=== PATIENT | male | born 1945 | race Caucasian/White ===

== ENCOUNTER → 2019-07-14 07:10 | Outpatient (CLI) | payer MEDICARE, SELFPAY ==
[2019-07-14 10:41] LABS: Alanine Aminotransferase 24 U/L (12-78); Albumin Level 3.6 gm/dL (3.4-5.0); Albumin/Globulin Ratio 1.2 (1.1-1.8); Alkaline Phosphatase 54 U/L (46-116); Anion Gap 12.9 mEq/L (5-15); Aspartate Amino Transferase 20 U/L (15-37); Bilirubin,Total 0.6 mg/dL (0.2-1.0); Blood Urea Nitrogen 30 mg/dL (7-18); Calcium 8.9 mg/dL (8.5-10.1); Carbon Dioxide 28 mmol/L (21.0-32.0); Chloride 106 mmol/L (98-107); Chol/HDL Ratio 3.9 (1-3.5); Cholesterol 124 mg/dL (140-200); Creatinine,Serum 1.04 mg/dL (0.70-1.30); Estimated Glomerular Filt Rate 70 ml/min (>60); GFR (African American) 84 ML/MIN (>60); Globulin 3.1 gm/dl (1.3-3.2); Glucose 94 mg/dL (74-106); HDL Cholesterol 32 mg/dL (27-67); LDL Cholesterol 72 mg/dL (0-130); Potassium 3.9 mmoL/L (3.5-5.1); Sodium 143 mmol/L (136-145); Total Protein,Serum 6.7 gm/dL (6.4-8.2); Triglycerides 99 mg/dL (30-200); VLDL Cholesterol 20 mg/dL (0-40)
== END ==
PROVIDERS: Visit Provider Internal Medicine Cardiovascular Disease
DX: E78.2 Mixed hyperlipidemia (principal)
CPT/HCPCS: 36415; 80053; 80061

== ENCOUNTER → 2019-08-28 10:49 | Outpatient (CLI) | payer MEDICARE, SELFPAY ==
--- NOTE | 2019-08-28 10:58 | XR_ITS ---
PROCEDURE: XR LUMBAR SPINE MIN 4V CLINICAL INDICATION: LUMBAGO W/SCIATICA L-spine fracture evaluation COMPARISON: No exams were available for comparison FINDINGS: Multilevel degenerative changes with anterior syndesmophytes at L3-L4 and L4-L5. There is mild wedging of L1 and T12 which may be chronic. There are no previous exams available for comparison. Facet arthritic changes are present at L4-5 and L5-S1. Mild osteoarthritic changes are present in the hips and there are bilateral renal calculi measuring 4 mm in the lower pole bilaterally. Mild arthritic changes are present involving the right SI joint. IMPRESSION: 1. Mild wedging of T12 and L1 which may be chronic. 2. Degenerative changes of the lumbar spine as described above 3. Bilateral nephrolithiasis Dictated by: David Beltre MD 08/28/2019 11:19 Electronically signed by David Beltre MD in [place] 08/28/2019 11:19
== END ==
PROVIDERS: PCP Family Medicine; Visit Provider Family Medicine
DX: M54.42 Lumbago with sciatica, left side (principal); M54.41 Lumbago with sciatica, right side
CPT/HCPCS: 72110

== ENCOUNTER → 2019-10-01 15:58 | Outpatient (CLI) | payer MEDICARE, SELFPAY ==
--- NOTE | 2019-10-01 16:00 | MR_ITS ---
PROCEDURE: MR LUMBAR SPINE WO CON CLINICAL INDICATION: BULGING LUMBAR DISC, LUMBAR FACET ARTHROPATHY, LUMBAGO W/SC Bilateral leg pain and numbness tingling and burning COMPARISON: CT LUMBAR SPINE WO CON from 09/26/2019 TECHNIQUE: Standard multiplanar multiecho sequences are performed without contrast. 3-D MIP and myelographic images are also rendered and reviewed FINDINGS: There is normal alignment. The spinal cord ends at the L1 level. T11-T12: Degenerative disc disease with mild facet and ligamentum hypertrophy. Increased T1 and T2 signal is present within the T12 vertebral body becoming less intense on the STIR images consistent with a lipoma/lipid rich hemangioma. There is mild wedging of T12 which appears old. T12-L1: Degenerative disc disease with bulging disc with facet and ligamentum hypertrophy. There borderline narrowing of the canal at 12 mm with bilateral lateral recess and foraminal narrowing. L1-L2: Mild degenerative disc disease with mild bulging disc with facet and ligamentum hypertrophy with mild bilateral lateral recess and foraminal narrowing. L2-L3: Facet and ligamentum hypertrophy with bilateral lateral recess and foraminal narrowing. L3-L4: Facet and ligamentum hypertrophy with bilateral lateral recess and foraminal narrowing. L4-5: Degenerative disc disease with bulging disc with severe facet and ligamentum hypertrophy with severe canal stenosis. The transverse dimension of the canal here is 5 mm with AP dimension at approximately 10 mm. There is a small broad-based central disc protrusion. There is severe bilateral lateral recess and foraminal narrowing. In addition, there is a right paracentral extruded herniated disc with superior extrusion of the disc. The superior portion of the disc measures about 15 mm and is in the right paracentral region causing severe right lateral recess narrowing. The bulging disc is slightly eccentric toward the left with some asymmetric facet and ligamentum hypertrophy on the left with severe left lateral recess narrowing. The L5-S1: Mild degenerative disc disease with facet and ligamentum hypertrophy with mild bilateral lateral recess and foraminal narrowing. Incidental note is made of bilateral peripelvic renal cysts IMPRESSION: 1. Abnormal MRI of the lumbar spine with multiple abnormalities from degenerative changes with canal stenosis, lateral recess and foraminal narrowing, and extruded herniated disc at L4-5. Please see above for detail. 2. T12-L1: Degenerative disc disease with bulging disc with facet and ligamentum hypertrophy. There borderline narrowing of the canal at 12 mm with bilateral lateral recess and foraminal narrowing. 3. L4-5: Degenerative disc disease with bulging disc with severe facet and ligamentum hypertrophy with severe canal stenosis. The transverse dimension of the canal here is 5 mm with AP dimension at approximately 10 mm. There is a small broad-based central disc protrusion. There is severe bilateral lateral recess and foraminal narrowing. In addition, there is a right paracentral extruded herniated disc with superior extrusion of the disc. The superior portion of the disc measures about 15 mm and is in the right paracentral region causing severe right lateral recess narrowing. The bulging disc is slightly eccentric toward the left with some asymmetric facet and ligamentum hypertrophy on the left with severe left lateral recess narrowing. Dictated by: David Beltre MD 10/02/2019 09:49 Electronically signed by David Beltre MD in [place] 10/02/2019 09:49
== END ==
PROVIDERS: PCP Family Medicine; Visit Provider Family Medicine
DX: M51.26 Other intervertebral disc displacement, lumbar region (principal); M47.816 Spondylosis without myelopathy or radiculopathy, lumbar region; M54.41 Lumbago with sciatica, right side; M54.42 Lumbago with sciatica, left side
CPT/HCPCS: 72148; 76376

== ENCOUNTER → 2020-06-14 07:36 | Outpatient (CLI) | payer MEDICARE, SELFPAY ==
[2020-06-14 08:52] LABS: Chloride 106 mmol/L (98-107); Potassium 4.6 mmoL/L (3.5-5.1); Sodium 141 mmol/L (136-145)
[2020-06-14 08:54] LABS: Alanine Aminotransferase 18 U/L (12-78); Alkaline Phosphatase 52 U/L (38-126); Aspartate Amino Transferase 25 U/L (17-59); Bilirubin,Total 0.6 mg/dl (0.2-1.3); Blood Urea Nitrogen 30 mg/dl (9-20); Estimated Glomerular Filt Rate 65 ml/min (>60); GFR (African American) 79 ML/MIN (>60)
[2020-06-14 08:55] LABS: Albumin/Globulin Ratio 1.4 (1.1-1.8); Anion Gap 10.6 mEq/L (5-15); Calcium 9.5 mg/dl (8.4-10.2); Carbon Dioxide 29 mmol/L (22.0-30.0); Chol/HDL Ratio 2.7 (1-3.5); Cholesterol 126 mg/dl (140-200); Globulin 2.9 g/dL (1.3-3.2); Glucose 103 mg/dl (74-100); HDL Cholesterol 46 mg/dl (40-60); Total Protein,Serum 6.9 g/dl (6.3-8.2); Triglycerides 80 mg/dl (30-150); VLDL Cholesterol 16 mg/dL (0-40)
[2020-06-14 09:06] LABS: Direct LDL Cholesterol 65.74 mg/dL (100-129)
== END ==
PROVIDERS: Visit Provider Internal Medicine Cardiovascular Disease
DX: E78.2 Mixed hyperlipidemia (principal)
CPT/HCPCS: 36415; 80053; 80061

== ENCOUNTER → 2021-08-01 09:14 | Outpatient (CLI) | payer MEDICARE, SELFPAY | PROVIDERS: PCP Family Medicine; Visit Provider Nurse Practitioner | DX: Z20.822 Contact with and (suspected) exposure to COVID-19 (principal); U07.1 COVID-19 | CPT/HCPCS: C9803; U0003; U0005 ==

== ENCOUNTER 2021-08-03 07:46 | Outpatient (CLI) | payer MEDICARE, SELFPAY ==
[2021-08-03 08:08] VITALS: BP 164/93; PULSE 93; RESP 18; TEMP 36.8; O2SAT 98
[2021-08-03 09:06] VITALS: BP 122/86; PULSE 89; RESP 16; O2SAT 98
[2021-08-03 09:30] VITALS: BP 121/84; PULSE 79; RESP 18; O2SAT 98
[2021-08-03 10:02] VITALS: BP 121/64; PULSE 70; RESP 18; TEMP 36.8; O2SAT 97
== END 2021-08-03 10:03 | disposition home or self-care (01) ==
LOC: INF 07:48
PROVIDERS: PCP Family Medicine; Visit Provider Family Medicine
DX: U07.1 COVID-19 (principal); Z23 Encounter for immunization
CPT/HCPCS: 96365

== ENCOUNTER → 2023-02-09 10:49 | Outpatient (CLI) | payer MEDICARE, SELFPAY ==
--- NOTE | 2023-02-09 10:55 | XR_ITS ---
FINAL REPORT CLINICAL HISTORY: CHRONIC COUGH, x 1 wk, former smoker FINDINGS: Two views of the chest were obtained. The heart size and pulmonary vascularity are within normal limits. The mediastinum is normal. No acute pulmonary abnormality is identified. There is no pneumothorax. There are moderate degenerative changes in the thoracic spine. IMPRESSION: No active cardiopulmonary disease. Reviewed, Interpreted and Dictated by Fab Christina III, MD Transcribed by Elizabeth Tinoco Authenticated and . [facility]
== END ==
PROVIDERS: PCP Family Medicine; Visit Provider Family Medicine
DX: R05.3 Chronic cough (principal)
CPT/HCPCS: 71046

== ENCOUNTER → 2023-03-06 10:19 | Outpatient (POV) | payer MEDICARE, SELFPAY | PROVIDERS: Visit Provider Dermatology | DX: Z00.00 Encounter for general adult medical examination without abnormal findings (principal) ==

== ENCOUNTER → 2023-08-14 10:19 | Outpatient (POV) | payer MEDICARE, SELFPAY | PROVIDERS: Visit Provider Dermatology | DX: Z00.00 Encounter for general adult medical examination without abnormal findings (principal) ==

== ENCOUNTER → 2023-10-02 16:52 | Outpatient (CLI) | payer MEDICARE, SELFPAY ==
--- NOTE | 2023-10-02 16:55 | MR_ITS ---
PROCEDURE INFORMATION: Exam: MR Lumbar Spine Without Contrast Exam date and time: 10/02/2023 5:02 PM Age: 78 years old Clinical indication: Low back pain; Prior surgery; Surgery date: 6+ months; Surgery type: Lumbar; Additional info: Lumbago with sciatica. Lumbar surgery 4 years ago. Bilateral leg numbness to the knees TECHNIQUE: Imaging protocol: Magnetic resonance imaging of the lumbar spine without contrast. COMPARISON: 1. MR LUMBAR SPINE WO CON 10/01/2019 4:[address] LUMBAR SPINE WO CON 09/26/2019 12:25 PM 3. CR XR LUMBAR SPINE MIN 4V 08/28/2019 11:05 AM FINDINGS: Bones/joints: The patient is status post laminectomy of the posterior L5 level. 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 Spinal cord: Visualized cord, conus medullaris and cauda equina are unremarkable without compression. L1-L2: There is loss of intervertebral disc space with a diffuse disc bulge and bilateral facet arthropathy that causes moderate canal narrowing. L2-L3: There is a diffuse disc bulge with bilateral facet arthropathy and ligamentum flavum infolding causes severe canal narrowing. L3-L4: There is loss of intervertebral disc space with a diffuse disc bulge and bilateral facet arthropathy that causes moderate canal narrowing. L4-L5: Significant disc bulge with associated moderate canal and neural foraminal narrowing, the patient is decompressed at this level. L5-S1: There is loss of intervertebral disc space with a mild diffuse disc bulge and mild bilateral facet arthropathy. Findings cause mild canal and bilateral neural foraminal narrowing. Soft tissues: Unremarkable. IMPRESSION: Status post laminectomy at L5. 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 Findings are most pronounced at L2-L3 where there is severe canal narrowing.
== END ==
PROVIDERS: PCP Family Medicine; Visit Provider Family Medicine
DX: M54.41 Lumbago with sciatica, right side (principal); M47.816 Spondylosis without myelopathy or radiculopathy, lumbar region; M51.26 Other intervertebral disc displacement, lumbar region
CPT/HCPCS: 72148; 76376

== ENCOUNTER 2023-11-29 08:00 | Outpatient (RCR) | payer MEDICARE, SELFPAY | END 2023-11-29 09:00 | disposition home or self-care (01) | LOC: PT 08:00 | PROVIDERS: PCP Family Medicine; Visit Provider Neurological Surgery | DX: M54.50 Low back pain, unspecified (principal) | CPT/HCPCS: 97110; 97163 ==

== ENCOUNTER 2024-02-05 09:15 | Outpatient (POV) | payer MEDICARE, SELFPAY | END 2024-02-05 23:59 | disposition home or self-care (01) | LOC: SC 09:16 | PROVIDERS: PCP Family Medicine; Visit Provider Dermatology | DX: Z00.00 Encounter for general adult medical examination without abnormal findings (principal) ==

== ENCOUNTER 2024-05-22 14:17 | Outpatient (CLI) | payer MEDICARE, SELFPAY | END 2024-05-22 23:59 | disposition home or self-care (01) | LOC: LAB 14:18 | PROVIDERS: PCP Family Medicine; Visit Provider Internal Medicine Medical Oncology | DX: D64.9 Anemia, unspecified (principal) | CPT/HCPCS: 36415; 80053; 82728; 83540; 83550; 85025 ==

== ENCOUNTER 2024-06-12 07:09 | Outpatient (CLI) | payer MEDICARE, SELFPAY ==
[2024-06-12 07:41] LABS: Basophils % 0.7 % (0.1-2.0); Eosinophils # 0.2 K/mm3 (0.0-0.4); Eosinophils % 2.7 % (0.1-12.0); Hematocrit 32.4 % (42.0-52.0); Hemoglobin 11.1 g/dL (14.1-18.0); Lymphocytes # 1.7 K/mm3 (0.7-4.5); Lymphocytes % 29.9 % (10-50); Mean Corpuscular HGB Conc 34.2 g/dL (31.8-35.4); Mean Corpuscular Hemoglobin 24.1 pg (27.0-31.2); Mean Corpuscular Volume 70.5 fl (80-94); Mean Platelet Volume 9.2 fl (7.4-10.4); Monocytes # 0.3 K/mm3 (0.1-1.0); Monocytes % 5.7 % (1.7-9.3); Neutrophils # 3.5 K/mm3 (1.8-7.8); Platelet Count 128 K/mm3 (142-424); Red Blood Count 4.59 M/mm3 (4.60-6.20); Red Cell Distribution Width 16.9 % (11.5-17.5); White Blood Count 5.7 K/mm3 (4.8-10.8)
[2024-06-12 08:25] LABS: Chloride 107 mmol/L (98-107)
[2024-06-12 08:26] LABS: Potassium 3.9 mmoL/L (3.5-5.1); Sodium 139 mmol/L (136-145)
[2024-06-12 08:28] LABS: Alanine Aminotransferase 26 U/L (12-78); Aspartate Amino Transferase 32 U/L (17-59); Blood Urea Nitrogen 25 mg/dl (9-20); Estimated Glomerular Filt Rate 72 ml/min (>60); GFR (African American) 87 ML/MIN (>60)
[2024-06-12 08:29] LABS: Albumin/Globulin Ratio 1.4 (1.1-1.8); Alkaline Phosphatase 99 U/L (38-126); Anion Gap 5.9 mEq/L (5-15); Bilirubin,Total 0.9 mg/dl (0.2-1.3); Calcium 8.6 mg/dl (8.4-10.2); Carbon Dioxide 30 mmol/L (22.0-30.0); Globulin 2.9 g/dL (1.3-3.2); Glucose 100 mg/dl (74-100); Iron 139 ug/dL (49-181); Total Protein,Serum 6.9 g/dl (6.3-8.2)
[2024-06-12 08:39] LABS: Total Iron Binding Capacity 263 ug/dL (261-462)
[2024-06-12 09:07] LABS: Ferritin 255 ng/ml (17.9-464)
== END 2024-06-12 23:59 | disposition home or self-care (01) ==
LOC: LAB 07:11
PROVIDERS: PCP Family Medicine; Visit Provider Internal Medicine Medical Oncology
DX: D64.9 Anemia, unspecified (principal)
CPT/HCPCS: 36415; 80053; 82728; 83540; 83550; 85025

== ENCOUNTER 2024-06-25 07:54 | Outpatient (CLI) | payer MEDICARE, SELFPAY ==
[2024-06-25 08:24] LABS: Hemoglobin 10.7 g/dL (14.1-18.0)
[2024-06-26 15:32] LABS: Albumin 3.5 g/dL (2.9-4.4); Alpha-1-Globulin 0.1 g/dL (0.0-0.4); Alpha-2-Globulin 0.7 g/dL (0.4-1.0); Gamma Globulin 1.3 g/dL (0.4-1.8); Protein, Total 6.5 g/dL (6.0-8.5)
[2024-06-27 11:14] LABS: Zinc 72 ug/dL (44-115)
[2024-06-30 12:48] LABS: PDF SCANNED IMAGE
== END 2024-06-25 23:59 | disposition home or self-care (01) ==
LOC: LAB 07:57
PROVIDERS: PCP Family Medicine; Visit Provider Internal Medicine Medical Oncology
DX: D64.9 Anemia, unspecified (principal)
CPT/HCPCS: 36415; 82525; 83655; 84155; 84165; 84630; 85018

== ENCOUNTER 2024-07-03 12:13 | Outpatient (CLI) | payer MEDICARE, SELFPAY ==
[2024-07-03 12:32] LABS: Basophils % 0.4 % (0.1-2.0); Eosinophils # 0.1 K/mm3 (0.0-0.4); Eosinophils % 1.8 % (0.1-12.0); Hematocrit 34.7 % (42.0-52.0); Hemoglobin 10.6 g/dL (14.1-18.0); Lymphocytes # 1.8 K/mm3 (0.7-4.5); Lymphocytes % 25.7 % (10-50); Mean Corpuscular HGB Conc 30.6 g/dL (31.8-35.4); Mean Corpuscular Hemoglobin 21.1 pg (27.0-31.2); Mean Corpuscular Volume 69.1 fl (80-94); Mean Platelet Volume 8.8 fl (7.4-10.4); Monocytes # 0.4 K/mm3 (0.1-1.0); Neutrophils # 4.8 K/mm3 (1.8-7.8); Neutrophils % 67.1 % (37.0-80.0); Platelet Count 135 K/mm3 (142-424); Red Blood Count 5.03 M/mm3 (4.60-6.20); Red Cell Distribution Width 16.8 % (11.5-17.5); White Blood Count 7.1 K/mm3 (4.8-10.8)
== END 2024-07-03 23:59 | disposition home or self-care (01) ==
LOC: LAB 12:16
PROVIDERS: PCP Family Medicine; Visit Provider Internal Medicine Medical Oncology
DX: D64.9 Anemia, unspecified (principal)
CPT/HCPCS: 36415; 85025

== ENCOUNTER 2024-09-02 09:10 | Outpatient (POV) | payer MEDICARE, SELFPAY | END 2024-09-02 23:59 | disposition home or self-care (01) | LOC: SC 09-03 07:44 | PROVIDERS: Visit Provider Dermatology | DX: Z00.00 Encounter for general adult medical examination without abnormal findings (principal) ==

== ENCOUNTER 2024-12-31 10:42 | Outpatient (CLI) | payer MEDICARE, SELFPAY ==
[2024-12-31 12:02] LABS: Basophils % 0.5 % (0.1-2.0); Eosinophils # 0.2 K/mm3 (0.0-0.4); Eosinophils % 2.4 % (0.1-12.0); Hematocrit 37.8 % (42.0-52.0); Hemoglobin 11.7 g/dL (14.1-18.0); Lymphocytes # 1.7 K/mm3 (0.7-4.5); Lymphocytes % 26.1 % (10-50); Mean Corpuscular Hemoglobin 20.8 pg (27.0-31.2); Mean Corpuscular Volume 67.1 fl (80-94); Mean Platelet Volume 11.1 fl (7.4-10.4); Monocytes # 0.4 K/mm3 (0.1-1.0); Monocytes % 6.7 % (1.7-9.3); Neutrophils # 4.2 K/mm3 (1.8-7.8); Neutrophils % 63.7 % (37.0-80.0); Platelet Count 180 K/mm3 (142-424); Red Blood Count 5.63 M/mm3 (4.60-6.20); Red Cell Distribution Width 16.3 % (11.5-17.5); White Blood Count 6.6 K/mm3 (4.8-10.8)
[2024-12-31 13:37] LABS: Albumin Level 4.4 g/dl (3.5-5.0); Chloride 103 mmol/L (98-107); Potassium 4.3 mmoL/L (3.5-5.1); Sodium 139 mmol/L (136-145)
[2024-12-31 13:40] LABS: Alanine Aminotransferase 34 U/L (12-78); Albumin/Globulin Ratio 1.6 (1.1-1.8); Alkaline Phosphatase 114 U/L (38-126); Anion Gap 12.3 mEq/L (5-15); Aspartate Amino Transferase 43 U/L (17-59); Blood Urea Nitrogen 20 mg/dl (9-20); Carbon Dioxide 28 mmol/L (22.0-30.0); Estimated Glomerular Filt Rate 81 ml/min (>60); GFR (African American) 98 ML/MIN (>60); Globulin 2.7 g/dL (1.3-3.2); Glucose 101 mg/dl (74-100); Total Protein,Serum 7.1 g/dl (6.3-8.2)
== END 2024-12-31 23:59 | disposition home or self-care (01) ==
LOC: LAB 10:43
PROVIDERS: PCP Family Medicine; Visit Provider Internal Medicine Medical Oncology
DX: D50.9 Iron deficiency anemia, unspecified (principal); D69.6 Thrombocytopenia, unspecified
CPT/HCPCS: 36415; 80053; 85025

== ENCOUNTER 2025-03-30 11:40 | Outpatient (CLI) | payer MEDICARE, SELFPAY ==
--- NOTE | 2025-03-30 11:45 | XR_ITS ---
FINAL REPORT CLINICAL HISTORY: LRFT KNEE PAIN FINDINGS: LEFT KNEE 3 views of the left knee were obtained. There is no acute fracture or dislocation. There is mild degenerative joint disease. Visualized joint spaces are normally aligned. Soft tissues are unremarkable. IMPRESSION: No acute bony abnormality. Reviewed, Interpreted and Dictated by Capri Cyr MD Transcribed by Gina Negron Authenticated and [facility]
== END 2025-03-30 23:59 | disposition home or self-care (01) ==
LOC: RAD 11:41
PROVIDERS: PCP Family Medicine; Visit Provider Family Medicine
DX: M25.562 Pain in left knee (principal)
CPT/HCPCS: 73562

== ENCOUNTER 2025-06-11 07:50 | Outpatient (CLI) | payer MEDICARE, SELFPAY ==
--- OUTSIDE RECORDS SUMMARY | 2025-03-30 06:15 | XMS_ITS ---
[facility] Address [address] [place] [id number] Care Team Providers Care Wall Covering Contractor Name Role Phone Dean Gillis Primary Care Provider Allergies No Known Allergies Results Component Value Reference Range Notes CBC Venipuncture (in house) Reviewed date:03/31/2025 10:57:14 AM Interpretation:Normal Performing Lab: Notes/Report: Normal wbc 6.0 3.5 - 10 lymph 27.6% 15 - 50 mid 5.6% 2 - 15 gran 66.8% 35 - 80 rbc 5.70 3.5 - 5.5 hgb 12.3 11.5 - 16.5 hct 38.5 35 - 55 mcv 67.6 75 - 100 mch 21.6 25 - 35 mchc 32.0 31 - 38 platlet 158 100 - 400 P-Comprehensive Metabolic Pa kate (CMP) Reviewed date:03/31/2025 10:57:14 AM Interpretation:Na 147 Performing Lab: Notes/Report: Test performed by [facility], [facility] [address] [place] [address] , [address], [place] [address] Monroe Figueroa MD, Motion Picture [employer]inter CLIA: [id number] Sodium 147 135-145 mmol/L Potassium 3.7 3.5-5.3 mmol/L Chloride 106 97-108 mmol/L CO2 30 22-32 mmol/L Glucose 96 65-99 mg/dL BUN 14 8-23 mg/dL Creatinine 0.98 0.70-1.30 mg/dL Calcium 8.8 8.6-10.4 mg/dL eGFR by Creatinine 77 >59 mL/min/1.73m2 Protein 6.9 6.0-8.3 g/dL Albumin 4.2 3.5-5.3 g/dL Alkaline Phosphatase 116 40-129 IU/L ALT (SGPT) 20 <5-55 IU/L AST (SGOT) 26 <5-46 IU/L Bilirubin, Total 0.9 <0.2-1.2 mg/dL A/G Ratio 1.6 1.1-2.5 P-TSH reflex to FT4 Reviewed date:03/31/2025 10:57:14 AM Interpretation:Normal Performing Lab: Notes/Report: Test performed by [facility], [address] , [address], [place] [address] Monroe Figueroa MD, Motion Picture [employer] CLIA: [id number] TSH reflex to FT4 1.80 0.43-5.25 mU/L X ray : Knee, left Reviewed date:03/31/2025 10:57:14 AM Interpretation:No Bony Abnormalities Performing Lab: Notes/Report: No Bony Abnormalities REASON FOR VISIT 3 week f/u Medications Medication SIG (Take, Route, Frequency, Duration) Notes Start Date End Date Status Claritin 10 MG 1 tablet Orally Once a day Active Flonase Allergy Relief 50 MCG/ACT 1 spray in each nostril Nasally Once a day Active Colace 100 MG 1 capsule as needed Orally Once a day 11/17/2024 Active Montelukast Sodium 10 MG 1 tablet Orally Once a day; Duration: 30 day(s) 05/09/2024 Active Omeprazole 20 MG 1 capsule 30 minutes before morning meal Orally Once a day 03/05/2024 Active Aspirin 81 MG 1 tab(s) Orally once a day Active Simvastatin 40 MG 1 tab(s) orally once a day (at bedtime) Active Nitroglycerin 0.4 MG 1 tab(s) sublingual ly every 5 minutes Active Gabapentin 100 MG 1 or 2 capsules Oral ly Two times a day; Duration: 30 days 03/30/2025 Active Furosemide 20 MG 1 tablet Orally Once a day as needed 03/09/2025 Active Alfuzosin HCl ER 10 MG 1 tablet immediat héctor after the same meal Orally Once a day; Duration: 90 days 03/09/2025 Active Irbesartan-hydroCHLOROthiaz ashley 300-12.5 MG 1 tablet Orally Once a day; Duration: 90 days 03/30/2025 Active Vital Signs Weight 250.2 lbs 03/30/2025 Blood pressure systolic 142 mm Hg 03/30/20 25 Blood pressure diastolic 76 mm Hg 025 Heart Rate 35 /min 03/30/2025 Height 70 in 03/30/2025 BMI 35.9 kg/m2 03/30/2025 Encounters Encounter Location Date Provider Diagnosis [facility] [address] [facility] [address] [place] [id number] 03/30/2025 Dean Gillis Essential hypertensi on I10 ; Edema, peripheral R60.0 ; Low back pain, unspecified M54.50 ; Pain in left knee M25.562 and Benign prostatic hyperplasia with lower urinary tract symptoms N40.1 Assessments Encounter Date Diagnosis (ICD Code) Assessment Notes Treatment Notes Treatment Clinical Notes Section Notes 03/30/2025 Essential hypertension (ICD-10 - I10) 03/30/2025 Edema, peripheral (ICD-10 - R60.0) 03/30/2025 Low back pain, unspecified (ICD-10 - M54.50) 03/30/2025 Pain in left knee (ICD-10 - M25.562) 03/30/2025 Benign prostatic hyperplasia with lower urinary tract symptoms (ICD-10 - N40.1) Plan Of Treatment Medication Medication Name Sig Start Date Stop Date Notes Gabapentin 100 MG 1 or 2 capsules Oral ly Two times a day; Duration: 30 days 03/30/2025 Furosemide 20 MG 1 tablet Orally Once a day as needed 03/09/2025 Alfuzosin HCl ER 10 MG 1 tablet immediat héctor after the same meal Orally Once a day; Duration: 90 days 03/09/2025 Irbesartan 300 MG 1 tablet Orally Once a day 03/09/2025 Irbesartan-hydroCHLOROthiazi d e 300-12.5 MG 1 tablet Orally Once a day; Duration: 90 days 03/30/2025 Next Appt Details Follow Up: 4 Weeks, Reason: Provider Name:Dean burris, 09/25/2025 09:00:00 AM, [address] [facility], [address], [place], [id number], Progress Notes * Jeremías TREVIZODOB:1 11/14/1944 (79 yo M)Acc No.[id number]:03/30/2025 Patient: Jeremías TOSCANO Provider: Yoav Gillis M.D. :1945 A ge:79 Y S ex:Male Date:03/30/2025 Address:[facility] [address] , [place], [id number] Subjective: * Chief Complaints: * 1 . 3 week f/u. * HPI: C ardiology: Blood Pressure Elevated P t presents today for a follow up. Pt sts that the fluid pill is really making him urinate a lot. Pt sts that he has urinated several times at home this morning and has went to the rest room twice since checking in. Pt sts that his BP at home was in the 150's over 70's. L ower back: c/o Low Back Pain P t sts that the Gabapentin is helping a little bit is not fully taking away his back and knee pain. K nee/Prather: c/o knee pain. * ROS: D ERMATOLOGY: no R kyle. n o H vivian. G ASTROENTEROLOGY: no N ausea. n o V omiting. U ROLOGY: no D ifficulty urinating. n o B lood in urine. * Medical History: C oronary Artery Disease, Hypertension, Hyperlipidemia, Esophageal Reflux, Sleep Apnea, Colon Polyps, 2005, Lumbar Disc Herniation, 2018, BPH. * Surgical History: A ppendectomy 1967, Colonoscopy 2005, 2008, 2013, Heart Cath-[facility] 1999, Lower Back - L4-5 Laminectomy with Discectomy 09/2019, Percutaneous coronary intervention. 1 LAD stent placed at [facility] 01/2024. * Hospitalization/Major Diagno stic Procedure: D ehydration 2006, Strep and Dehydration 1969's, Fall 1989's, Passed Out- [facility] ER 03/14/2012. * Family History: F ather: , emphysema. M other: , esophageal cancer. 1 brother(s) , 1 sister(s) . 1 son(s) , 1 daughter(s) . . * Social History: C URRENT TOBACCO USE S moking Status: Patient does NOT smoke. C affeine: yes, frequency:coffee, tea. Home smoke detector use: yes. Marital Status: . Past smoking status: no, Smoking status: Does not smoke. Alcohol: No. * Medications: T aking Aspirin 81 MG Tablet Delayed Release 1 tab(s) Orally once a day , Taking Nitroglycerin 0.4 MG Tablet Sublingual 1 tab(s) sublingually every 5 minutes , Taking Simvastatin 40 MG Tablet 1 tab(s) orally once a day (at bedtime) , Taking Omeprazole 20 MG Capsule Delayed Release 1 capsule 30 minutes before morning meal Orally Once a day , Taking Montelukast Sodium 10 MG Tablet 1 tablet Orally Once a day , Taking Flonase Allergy Relief 50 MCG/ACT Suspension 1 spray in each nostril Nasally Once a day , Taking Claritin 10 MG Tablet 1 tablet Orally Once a day , Taking Colace 100 MG Capsule 1 capsule as needed Orally Once a day , Taking Irbesartan 300 MG Tablet 1 tablet Orally Once a day , Taking Furosemide 20 MG Tablet 1 tablet Orally Once a day , Taking Alfuzosin HCl ER 10 MG Tablet Extended Release 24 Hour 1 tablet immediately after the same meal Orally Once a day , Taking Gabapentin 100 MG Capsule 1 or 2 capsules Orally Two times a day , Medication List reviewed and reconciled with the patient * Allergies: N .K.D.A. Objective: * Vitals: W t: 250.2, Temp: 98.3, BP: 142/76, HR: 35, Nurse: JAYDEN, Ht: 70, BMI:35.9. * Examination: C ardiology: General Appearance: p leasant, NAD. H eart sounds: R RR, normal S1, S2. L ungs: c lear, no rales or wheezes. E xtremities: t race bilateral leg edema, minimal effusion of the left knee, full ROM, no joint line tenderness. ? Assessment: * Assessment: 1. E ssential hypertension - I10 (Primary) 2 . E rodo, peripheral - R60.0? 3. L ow back pain, unspecified - M54.50 4 . P ain in left knee - M25.562 5 . B enign prostatic hyperplasia with lower urinary tract symptoms - N40.1 Plan: * Treatment: 2. E rodo, peripheral Decrease Furosemide Tablet, 20 MG, 1 tablet, Orally, Once a day as needed. L AB: P-Comprehensive Metabolic Panel (CMP) (Collection Date & Time - 03/30/2025 09:52 AM) N a 147 Value Reference Range A /G Ratio 1.6 1.1-2.5 - * A lbumin 4.2 3.5-5.3 - g/dL * A lkaline Phosphatase 116 40-129 - IU/L * A LT (SGPT) 20 <5-55 - IU/L * A ST (SGOT) 26 <5-46 - IU/L * B ilirubin, Total 0.9 <0.2-1.2 - mg/dL * B UN 14 8-23 - mg/dL * C alcium 8.8 8.6-10.4 - mg/dL * C hloride 106 97-108 - mmol/L * C O2 30 22-32 - mmol/L * C reatinine 0.98 0.70-1.30 - mg/dL * G lucose 96 65-99 - mg/dL * P otassium 3.7 3.5-5.3 - mmol/L * S odium 147 H 135-145 - mmol/L * P rotein 6.9 6.0-8.3 - g/dL * e GFR by Creatinine 77 >59 - mL/min/1.73m2 * Jennifer Bernardo 03/31/2025 10:5 6:59 AM EDT > See phone encounter ?LAB: P-TSH reflex to FT4 (Collection Date & Time - 03/30/2025 09:52 AM)? Normal* Value Reference Range T SH reflex to FT4 1.80 0.43-5.25 - mU/L * Jennifer Bernardo 03/31/2025 10:5 6:59 AM EDT > See phone encounter ?LAB: CBC Venipuncture (in house) (Collection Date & Time - 03/30/2025)? Normal* Value Reference Range w bc 6.0 3.5 - 10 * l ymph 27.6% 15 - 50 * m id 5.6% 2 - 15 * g ran 66.8% 35 - 80 * r bc 5.70 3.5 - 5.5 * h gb 12.3 11.5 - 16.5 * h ct 38.5 35 - 55 * m cv 67.6 75 - 100 * m ch 21.6 25 - 35 * m chc 32.0 31 - 38 * p latlet 158 100 - 400 * Carol Gross 03/30/2025 12:33:1 5 PM EDT > Jennifer Bernardo 03/31/2025 10:56:59 AM EDT > See phone encounter 3.?Low back pain, unspecified? Refill Gabapentin Capsule, 100 MG, 1 or 2 capsules, Orally, Two times a day, 30 days, 90, Refills 2.??4.?Pain in left knee?Imaging: X ray : Knee, left (Performed Date - 03/30/2025)?No Bony Abnormalities* Jennifer Bernardo 03/31/2025 10:5 6:59 AM EDT > See phone encounter 5.?Benign prostatic hyperplasia with lower urinary tract symptoms? Refill Alfuzosin HCl ER Tablet Extended Release 24 Hour, 10 MG, 1 tablet immediately after the samemeal, Orally, Once a day, 90 days, 90, Refills 1.?? * Procedure Codes: G 2211 Complex e/[place], [address] CBC WITH AUTO DIFF, 1036F TOBACCO NON-USER, G8950 PREHTN/HTN BP DOC INDCD F/U DOC, G8753 MOST RECENT SYSTOLIC BP >= 140MM HG, G8754 MOST RECENT DIASTOLIC BP < 90MM HG * Follow Up: 4 Weeks * Images: Billing Information: * Visit Code: 47167 Office Visit, Est Pt., Level 4. * Procedure Codes: G2211 Complex e/[place]. [address] CBC WITH AUTO DIFF. 1036F TOBACCO NON-USER. G8950 PREHTN/HTN BP DOC INDCD F/U DOC. G8753 MOST RECENT SYSTOLIC BP >= 140MM HG. G8754 MOST RECENT DIASTOLIC BP < 90MM HG. * Electronic signature of Janae Gillis MD on 06/11/2025 at 07:52 AM EDT Sign off status: Pending * Provider: Yoav Gillis M.D. Date: 0 03/30/2025 Generated for Arpan geller/Faxing/eTransmitting on: 0 06/11/2025 07:52 AM EDT History and Physical Notes * HPI (History of Present Illness) Category Sub-Category Detail Notes Category Not es Cardiology Blood Pressure Elevated Pt prese nts today for a follow up. Pt sts that the fluid pill is really making him urinate a lot. Pt sts that he has urinated several times at home this morning and has went to the rest room twice since checking in. Pt sts that his BP at home was in the 150's over 70's Lower back Low Back Pain Pt sts that the Gabapentin is helping a little bit is not fully taking away his back and knee pain Knee/Prather knee pain Examination Category Sub-Category Detail Notes Category Not es Cardiology Lungs: clear, no rales or wheezes Heart sounds: RRR, normal S1, S2 Extremities: trace bilateral leg edema, minimal effusion of the left knee, full ROM, no joint line tenderness General Appearance: pleasant, NAD
--- OUTSIDE RECORDS SUMMARY | 2025-04-27 05:45 | XMS_ITS ---
[facility] [address] [facility] [address] [place] [id number] Care Team Providers Care Space Operations Name Role Phone Dean Gillis Primary Care Provider Allergies No Known Allergies REASON FOR VISIT 4 weeks Medications Medication SIG (Take, Route, Frequency, Duration) Notes Start Date End Date Status Gabapentin 100 MG 1 or 2 capsules Oral ly Two times a day; Duration: 30 days 03/30/2025 Active Nitroglycerin 0.4 MG 1 tab(s) sublingual ly every 5 minutes Active Aspirin 81 MG 1 tab(s) Orally once a day Active Simvastatin 40 MG 1 tab(s) orally once a day (at bedtime) Active Alfuzosin HCl ER 10 MG 1 tablet immediat héctor after the same meal Orally Once a day; Duration: 90 days 03/09/2025 Active Irbesartan-hydroCHLOROthiaz ashley 300-12.5 MG 1 tablet Orally Once a day 03/30/2025 Active Flonase Allergy Relief 50 MCG/ACT 1 spray in each nostril Nasally Once a day Active Furosemide 20 MG 1 tablet Orally Once a day as needed 03/09/2025 Active Colace 100 MG 1 capsule as needed Orally Once a day 11/17/2024 Active Claritin 10 MG 1 tablet Orally Once a day Active Omeprazole 20 MG 1 capsule 30 minutes before morning meal Orally Once a day 03/05/2024 Active Montelukast Sodium 10 MG 1 tablet Orally Once a day; Duration: 30 day(s) 05/09/2024 Active Vital Signs Weight 243 lbs 04/27/2025 Blood pressure systolic 132 mm Hg 04/27/20 25 Blood pressure diastolic 70 mm Hg 025 Heart Rate 48 /min 04/27/2025 Height 70 in 04/27/2025 BMI 34.86 kg/m2 04/27/2025 Encounters Encounter Location Date Provider Diagnosis [facility] [address] [facility] 36 [facility] [address] [place] [id number] 04/27/2025 Dean Gillis Essential hypertensi on I10 and Edema, peripheral R60.0 Assessments Encounter Date Diagnosis (ICD Code) Assessment Notes Treatment Notes Treatment Clinical Notes Section Notes 04/27/2025 Essential hypertension (ICD-10 - I10) Much better control 04/27/2025 Edema, peripheral (ICD-10 - R60.0) Resolved Plan Of Treatment Medication Medication Name Sig Start Date Stop Date Notes Irbesartan-hydroCHLOROthiazi de 300-12.5 MG 1 tablet Orally Once a day 03/30/2025 Furosemide 20 MG 1 tablet Orally Once a day as needed 03/09/2025 Treatment Notes Assessment Notes Essential hypertension Much better contr ol Edema, peripheral Resolved Next Appt Details Follow Up: 5 Months, Reason: Provider Name:Dean Sanon ry, 09/25/2025 09:00:00 AM, [address] [facility] 36 [facility], [address], [place], [id number], Progress Notes * Jeremías TREVIZODOB:1 11/14/1944 (79 yo M)Acc No.[id number]:04/27/2025 Progress Notes Patient: Shefali ERIKACATY Jeremías Hernandez Provider: Yoav Gillis M.D. :1945 A ge:79 Y S ex:Male Date:04/27/2025 Address:[facility] [address], [place], [id number] Subjective: * Chief Complaints: * 1 . 4 weeks. * HPI: C ardiology: 79 year old male presents with c/o Blood Pressure Elevated P t here for 4 week f/u. Pt started Irbesartan/HCTZ 300-12.5 mg 03/30/2025. * ROS: D ERMATOLOGY: no R kyle. n o H vivian. G ASTROENTEROLOGY: no N ausea. n o V omiting. U ROLOGY: no D ifficulty urinating. n o B lood in urine. * Medical History: C oronary Artery Disease, Hypertension, Hyperlipidemia, Esophageal Reflux, Sleep Apnea, Colon Polyps, 2005, Lumbar Disc Herniation, 2018, BPH, anemia, s/p Heme/onc eval in 2023. * Surgical History: A ppendectomy 1967, Colonoscopy 2005, 2008, 2013, Heart Cath-[facility] 1999, Lower Back - L4-5 Laminectomy with Discectomy 09/2019, Percutaneous coronary intervention. 1 LAD stent placed at [facility] 01/2024. * Hospitalization/Major Diagno stic Procedure: D ehydration 2006, Strep and Dehydration s, Fall , Passed Out- [facility] ER 03/14/2012. * Family History: F ather: , emphysema. M other: , esophageal cancer. 1 brother(s) , 1 sister(s) . 1 son(s) , 1 daughter(s) . . * Social History: C URRENT TOBACCO USE: No . C affeine: yes, frequency:coffee, tea. Home smoke detector use: yes. Marital Status: . Past smoking status: never smoked. Alcohol: No. * Medications: T aking Aspirin [...] needed Orally Once a day , Taking Alfuzosin HCl ER 10 MG Tablet Extended Release 24 Hour 1 tablet immediately after the same meal Orally Once a day , Taking Irbesartan-hydroCHLOROthiazide 300-12.5 MG Tablet 1 tablet Orally Once a day , Taking Gabapentin 100 MG Capsule 1 or 2 capsules Orally Two times a day , Taking Furosemide 20 MG Tablet 1 tablet Orally Once a day as needed , Medication List reviewed and reconciled with the patient * Allergies: N .K.D.A. Objective: * Vitals: W t: 243, Temp: 98.0, BP: 132/70, HR: 48, Nurse: gerardo, Ht: 70, BMI:34.86. * Examination: C ardiology: General Appearance: p leasant, NAD. H eart sounds: R RR, normal S1, S2. L ungs: c lear, no rales or wheezes. E xtremities: n o leg edema. Assessment: * Assessment: 1. E ssential hypertension - I10 (Primary) 2 . E rodo, peripheral - R60.0? Plan: * Treatment: 2. E rodo, peripheral Continue Furosemide Tablet, 20 MG, 1 tablet, Orally, Once a day as needed. Notes: Resolved * Procedure Codes: G 2211 Complex e/m visit add on, 1036F TOBACCO NON-USER, G8950 PREHTN/HTN BP DOC INDCD F/U DOC, G8752 MOST RECENT SYSTOLIC BP < 140MM HG, G8754 MOST RECENT DIASTOLIC BP < 90MM HG * Follow Up: 5 Months * Images: Billing Information: * Visit Code: 08610 Office Visit, Est Pt., Level 3. * Procedure Codes: G2211 Complex e/m visit add on. 1036F TOBACCO NON-USER. G8950 PREHTN/HTN BP DOC INDCD F/U DOC. G8752 MOST RECENT SYSTOLIC BP < 140MM HG. G8754 MOST RECENT DIASTOLIC BP < 90MM HG. * Electronic signature of Janae Gillis MD on 06/11/2025 at 07:53 AM EDT Sign off status: Pending * Provider: Yoav Gillis M.D. Date: 0 04/27/2025 Generated for Arpan geller/Paul/Angelique on: 0 06/11/2025 07:53 AM EDT History and Physical Notes * HPI (History of Present Illness) Category Sub-Category Detail Notes Category Not es Cardiology Blood Pressure Elevated Pt here for 4 week f/u. Pt started Irbesartan/HCTZ 300-12.5 mg 03/30/2025 Examination Category Sub-Category Detail Notes Category Not es Cardiology Lungs: clear, no rales or wheezes Heart sounds: RRR, normal S1, S2 Extremities: no leg edema General Appearance: pleasant, NAD
--- OUTSIDE RECORDS SUMMARY | 2025-06-08 05:36 | XMS_ITS ---
Author Organization [facility] Address [address] [place] [address] 36 [facility] [address] [place] [id number] Care Team Providers Care Freight Checker Name Role Phone Dean Gillis Primary Care Provider REASON FOR VISIT Lab Order Encounters Encounter Location Date Provider Diagnosis [facility] [address] [place] [id number] 06/08/2025 Dean Gillis Essential hypertensi on I10 ; Hyperlipidemia, unspecified hyperlipidemia type E78.5 and Hypertriglyceridemia E78.1 Assessments Encounter Date Diagnosis (ICD Code) Assessment Notes Treatment Notes Treatment Clinical Notes Section Notes 06/08/2025 Essential hypertensi on (ICD-10 - I10) 06/08/2025 Hyperlipidemia, unspecified hyperlipidemia type (ICD-10 - E78.5) 06/08/2025 Hypertriglyceridemia (ICD-10 - E78.1) Plan Of Treatment Pending Test Test Name Order Date H-TSH 06/08/2025 H-CBC 06/08/2025 H-Microalbumine/Creatinine 06/08/2025 H-Lipid Panel 06/08/2025 H-CMP 06/08/2025 Next Appt Details Provider Name:Dean Sanon ry, 09/25/2025 09:00:00 AM, [address] [facility] 36 [facility], [address], [place], [id number], Progress Notes * Jeremías TREVIZODOB:1 11/14/1944 (79 yo M)Acc No.[id number]:06/08/2025 Patient: Jeremías TOSCANO :1945 A ge:79 Y S ex:Male Address:[facility] [address] [place], [address] Subjective: * Chief Complaints: * L ab Order * Medical History: * Surgical History: * Hospitalization/Major Diagno stic Procedure: * Medications: Objective: * Vitals: * Physical Examination: Assessment: * Assessment: 1. E ssential hypertension - I10 (Primary) 2 . H yperlipidemia, unspecified hyperlipidemia type - E78.5 3 . H ypertriglyceridemia - E78.1 Plan: * Treatment: 2. H yperlipidemia, unspecified hyperlipidemia type L AB: H-TSH L AB: H-Lipid Panel L AB: H-CMP * Procedure Codes: * true * Date: Generated for Arpan geller/Paul/Lakshmiitting on: 0 06/11/2025 07:52 AM EDT
--- OUTSIDE RECORDS SUMMARY | 2025-06-11 07:52 | XMS_ITS | Patient Health Record ---
Author Organization [facility] Address [address] [place] [phone] Care Team Providers Care Body Recall Instructor Name Role Phone Dean Gillis Primary Care [...] 147 Performing Lab: Notes/Report: Test performed by [facility] , [address], [place] [address] Monroe Figueroa MD, Electromechanic CLIA: [id number] Sodium 147 135-145 mmol/L Potassium 3.7 3.5-5.3 [...] Interpretation:Normal Performing Lab: Notes/Report: Test performed by [facility], [address] , [address], [place] [address] Monroe Figueroa MD, Electromechanic CLIA: [id number] TSH reflex to FT4 1.80 0.43-5.25 mU/L X ray : Knee, left Reviewed date:03/31/2025 10:57:14 AM Interpretation:No Bony Abnormalities Performing Lab: Notes/Report: No Bony Abnormalities CBC Fingerstick (in house) Reviewed date:11/17/2024 12:36:18 PM Interpretation: Performing Lab: Notes/Report: wbc 7.4 3.5 - 10 lym 17.8 15 - 50 mid 5.0 2 - 15 gran 77.2 35 - 80 rbc 5.99 3.5 - 5.5 hgb 12.8 11.5 - 16.5 hct 40.3 35 - 55 mcv 67.2 75 - 100 mch 21.4 25 - 35 mchc 31.9 31 - 38 plat 147 100 - 400 CBC Fingerstick (in house) Reviewed date:08/18/2024 01:29:11 PM Interpretation: Performing Lab: Notes/Report: wbc 7.1 3.5 - 10 lym 20.8% 15 - 50 mid 5.1% 2 - 15 gran 74.1% 35 - 80 rbc 5.30 3.5 - 5.5 hgb 11.7 11.5 - 16.5 hct 36.3 35 - 55 mcv 68.5 75 - 100 mch 22.0 25 - 35 mchc 32.1 31 - 38 plat 145 100 - 400 Urinalysis - Inhouse Reviewed date:01/09/2025 01:24:57 PM Interpretation: Performing Lab: Notes/Report: Color/Clarity dark yellow/clear Leuk Neg Nitrite Neg Urobili 16 Protein 1+ pH 6.0 Blood Neg Sp. Gr. 1.020 Ketone Trace Bili Neg Gluc Neg Medications Medication SIG (Take, Route, Frequency, Duration) Notes Start Date End Date Status Irbesartan-hydroCHLOROthiaz ashley 300-12.5 MG 1 tablet Orally Once a day; Duration: 90 days Active Gabapentin 100 MG 1 or 2 capsules Oral ly Two times a day; Duration: 30 days 03/30/2025 Active Nitroglycerin 0.4 MG 1 tab(s) sublingual ly every 5 minutes Active Aspirin 81 MG 1 tab(s) Orally once a day Active Omeprazole 20 MG 1 capsule 30 minutes before morning meal Orally Once a day 03/05/2024 Active Simvastatin 40 MG 1 tab(s) orally once a day (at bedtime) Active Flonase Allergy Relief 50 MCG/ACT 1 spray in each nostril Nasally Once a day Active Furosemide 20 MG 1 tablet Orally Once a day as needed 03/09/2025 Active Montelukast Sodium 10 MG 1 tablet Orally Once a day; Duration: 30 day(s) 05/09/2024 Active Colace 100 MG 1 capsule as needed Orally Once a day 11/17/2024 Active Claritin 10 MG 1 tablet Orally Once a day Active Alfuzosin HCl ER 10 MG 1 tablet immediat héctor after the same meal Orally Once a day; Duration: 90 days 03/09/2025 Active Immunizations Vaccine Route Administration Date Status Comme nts [id number] e pts. IM Intramuscular 08/26/2012 Administered xFluzone (6mos and older)-trivalent IM Intramuscular 09/11/2011 Administered Tetanus Tdap-Adacel (over 7yrs) IM Intramuscular 04/29/2013 Administered Shingrix Unknown 06/30/2021 Administered Shingrix Unknown 10/06/2021 Administered Prevnar (PCV20) IM Intramuscular 09/08/2024 Administered Prevnar (PCV13) IM Intramuscular 08/31/2014 Administered Hepatitis A (adult) Unknown 10/14/2018 Administered Hepatitis A (adult) IM Intramuscular 05/14/2019 Administer ed Fluzone High Dose (65yr and older) IM Intramuscular 09/01/2013 Administered Fluzone High Dose (65yr and older) IM Intramuscular 08/05/2014 Administered Fluzone High Dose (65yr and older) IM Intramuscular 08/06/2015 Administered Fluzone High Dose (65yr and older) IM Intramuscular 08/07/2016 Administered Fluzone High Dose (65yr and older) IM Intramuscular 08/02/2017 Administered Fluzone High Dose (65yr and older) IM Intramuscular 08/13/2019 Administered Fluzone High Dose (65yr and older) Unknown 06/28/2020 Administered Fluzone High Dose (65yr and older) Unknown 08/13/2021 Administered Fluzone High Dose (65yr and older) Unknown 08/07/2022 Pending Fluzone High Dose (65yr and older) Unknown 07/11/2023 Administered COVID 19 Moderna Unknown 01/05/2021 Administered COVID 19 Moderna Unknown 11/25/2021 Administered COVID 19 Moderna Unknown 05/03/2022 Administered Problems Problem Type SNOMED Code ICD Code Onset Dates Problem Status W/U Status Risk Notes Problem Sleep apnea (33435574) SLEEP APNEA NOS (780.57) Active confirmed Problem Essential hypertension (83196602) Essential hypertension (I10) Active confirmed Problem Hypertriglyceridemia (983329670) Hypertriglyceridemia (E78.1) Active confirmed Problem Arthropathy of lumba r facet joint (045381111) Lumbar facet arthropathy (M47.816) Active confirmed Problem Sciatica (85933446) Lumbago with sciatica, right side (M54.41) Active confirmed Problem Sciatica (91992050) Lumbago with sciatica, left side (M54.42) Active confirmed Problem Chronic pain (54431009) Other chronic pain (G89.29) Active confirmed Problem Low back pain (529735743) Bilateral low back pain without sciatica (M54.5) Active confirmed Problem Displacement of lumbar intervertebral disc without myelopathy (69213615) Bulging lumbar disc (M51.26) Active confirmed Problem Obese class II (619222493401164) BMI 36.0-36.9,adult (Z68.36) Active confirmed Problem Intervertebral disc disorder of lumbar region with myelopathy (31766501) 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) Active confirmed Problem Hyperlipidaemia (41446642) Hyperlipidemia, unspecified hyperlipidemia type (E78.5) Active confirmed Problem Sciatica (15847410) Acute right- sided low back pain with right-sided sciatica (M54.41) Active confirmed Problem Lower urinary tract symptoms due to benign prostatic hypertrophy (59967241457378) Benign prostatic hyperplasia with lower urinary tract symptoms (N40.1) Active confirmed Problem Allergic rhinitis (22602029) Allergic rhinitis, unspecified seasonality, unspecified trigger (J30.9) Active confirmed Problem Coronary arteriosclerosis (disorder) (56539296) CAD in [place] artery (I25.10) Active confirmed Problem Primary hypertension (96275555) Primary hypertension (I10) Active confirmed Problem Morbid obesity (427719090) Severe obesity (BMI 35.0-39.9) with comorbidity (E66.01) Active confirmed Vital Signs Heart Rate 48 /min 04/27/2025 Blood pressure diastolic 70 mm Hg 04/27/2025 Height 70 in 04/27/2025 Blood pressure systolic 132 mm Hg 04/27/2025 Weight 243 lbs 04/27/2025 BMI 34.86 kg/m2 04/27/2025 Encounters Encounter Location Date Provider Diagnosis [facility] [address] [place], [place] [phone] 08/18/2024 Dean [place] Acute URI J06.9 [facility] [address] [place], [place] [phone] 09/08/2024 Dean Greenville Essential hypertensi on I10 and Encounter for immunization Z23 [facility] [address] [facility] [address] [place], [place] [id number] 11/17/2024 Dean [place] BRBPR (bright red bl ood per rectum) K62.5 and Other constipation K59.09 [facility] [address] [place], [place] [id number] 01/09/2025 Dean [place] Encounter for Depart ment of Transportation (DOT) examination for mari license Z02.4 [facility] [address] [place], [place] [id number] 03/09/2025 Dean [place] Essential hypertensi on I10 ; Frequency of micturition R35.0 ; Benign prostatic hyperplasia with lower urinary tract symptoms N40.1 ; Other chronic pain G89.29 ; Low back pain, unspecified M54.50 ; Hyperlipidemia, unspecified hyperlipidemia type E78.5 ; BMI 36.0-36.9,adult Z68.36 and Severe obesity (BMI 35.0-39.9) with comorbidity E66.01 [facility] [address] [place], [place] [id number] 03/30/2025 Dean [place] Essential hypertensi on I10 ; Edema, peripheral R60.0 ; Low back pain, unspecified M54.50 ; Pain in left knee M25.562 and Benign prostatic hyperplasia with lower urinary tract symptoms N40.1 [facility] [address] [place], [place] [id number] 04/27/2025 Dean [place] Essential hypertensi on I10 and Edema, peripheral R60.0 [facility] [address] [facility] [address] [place] [id number] 03/31/2025 Dean [place] [facility] [address] [facility] [address] [place], [place] [id number] 06/08/2025 Dean [place] Essential hypertensi on I10 ; Hyperlipidemia, unspecified hyperlipidemia type E78.5 and Hypertriglyceridemia E78.1 Assessments Encounter Date Diagnosis (ICD Code) Assessment Notes Treatment Notes Treatment Clinical Notes Section Notes 11/17/2024 Other constipation (ICD-10 - K59.09) fiber in diet, increase 11/17/2024 BRBPR (bright red bl ood per rectum) (ICD-10 - K62.5) Symptoms have resolved. Patient will call if they return 01/09/2025 Encounter for Depart ment of Transportation (DOT) examination for mari license (ICD-10 - Z02.4) 03/09/2025 Essential hypertensi on (ICD-10 - I10) 03/09/2025 Frequency of micturi tion (ICD-10 - R35.0) 03/30/2025 Edema, peripheral (ICD-10 - R60.0) 04/27/2025 Essential hypertensi on (ICD-10 - I10) Much better control 04/27/2025 Edema, peripheral (ICD-10 - R60.0) Resolved 06/08/2025 Essential hypertensi on (ICD-10 - I10) 06/08/2025 Hyperlipidemia, unspecified hyperlipidemia type (ICD-10 - E78.5) 09/08/2024 Essential hypertensi on (ICD-10 - I10) 09/08/2024 Encounter for immunization (ICD-10 - Z23) 03/30/2025 Essential hypertensi on (ICD-10 - I10) 08/18/2024 Acute URI (ICD-10 - J06.9) 03/30/2025 Low back pain, unspecified (ICD-10 - M54.50) 06/08/2025 Hypertriglyceridemia (ICD-10 - E78.1) 03/09/2025 Benign prostatic hyperplasia with lower urinary tract symptoms (ICD-10 - N40.1) 03/09/2025 Other chronic pain (ICD-10 - G89.29) 03/30/2025 Pain in left knee (ICD-10 - M25.562) 03/30/2025 Benign prostatic hyperplasia with lower urinary tract symptoms (ICD-10 - N40.1) 03/09/2025 Low back pain, unspecified (ICD-10 - M54.50) 03/09/2025 Hyperlipidemia, unspecified hyperlipidemia type (ICD-10 - E78.5) 03/09/2025 BMI 36.0-36.9,adult (ICD-10 - Z68.36) 03/09/2025 Severe obesity (BMI 35.0-39.9) with comorbidity (ICD-10 - E66.01) Plan Of Treatment Pending Test Test Name Order Date colonoscopy 02/09/2023 H-TSH 06/08/2025 H-CBC 06/08/2025 H-Microalbumine/Creatinine 06/08/2025 H-Lipid Panel 06/08/2025 H-CMP 06/08/2025 P-Iron with Transferrin Saturation 03/05 Next Appt Details Provider Name:Dean Sanon ry, 09/25/2025 09:00:00 AM, [address], [address], [place], [place], [id number], Insurance Providers Payer Name Payer Address Payer Phone Subscriber Number Group Number Insured Name Patient Relationship to Insured Coverage Start Date Coverage End Date [employer] (MEDICAR E) [address] [address] [place] [address] [id number] Jeremías Trevizo Self - patient is the insured Medical (General) History Medical History History ICD Code Coronary Artery Disease Hypertension Hyperlipidemia Esophageal Reflux Sleep Apnea Colon Polyps, 2005 Lumbar Disc Herniation, 2018 BPH anemia, s/p Heme/onc eval in 2023 Surgical History Surgery Date(Month/Year) Appendectomy 1968 Colonoscopy 2005, 2008, 2013 [facility] 1999 Lower Back - L4-5 Laminectomy with Disce ctomy 09/2019 Percutaneous coronary interv ention. [facility] Hospitalization History Reason Date(Month/Year) Passed Out- [facility] ER 03/14/2012 Fall 1989' Strep and Dehydration 1969's Dehydration 2006
--- OUTSIDE RECORDS SUMMARY | 2025-06-11 07:53 | XMS_ITS | Clinical Summary ---
Author Organization [facility] Address [address] [place] [address] Care Team Providers Care Cement Finisher Name Role Phone Dean Gillis MD Primary Care Provider [phone] Allergies No known active allergies Medications aspirin 81 MG chewable tablet Chew 1 tablet Daily. 30 tablet 1 10/12/2019 11:25 AM EST 9 Active Multiple Vitamins-Carlyss als (PRESERVISION AREDS 2 PO) Take by mouth Daily. Active losartan-hydro chlorothiazide (Hyzaar) 50-12.5 MG per tablet Take 1 tablet by mouth Daily. 90 tablet 3 3 Active alfuzosin (UROXATRAL) 10 MG 24 hr tablet Take 1 tablet by mouth Daily. Active finasteride (PROSCAR) 5 MG tablet Take 1 tablet by mouth Daily. 4 Active gabapentin (NEURONTIN) 100 MG capsule Take 1 capsule by mouth As Needed. Active pantoprazole (PROTONIX) 40 MG EC tablet Take 1 tablet by mouth Every 12 (Twelve) Hours. 4 Active fluticasone (FLONASE) 50 MCG/ACT nasal spray 2 sprays into the nostril(s) as directed by provider Daily. 48 g 3 4 Active benzonatate (TESSALON) 200 MG capsule Take 1 capsule by mouth As Needed. 4 Active docusate sodium (Colace) 100 MG capsule Take 1 capsule by mouth As Needed. 5 Active loratadine (Claritin) 10 MG tablet Take 1 tablet by mouth As Needed. Active nitroglycerin (NITROSTAT) 0.[address] 1 tablet under the tongue Every 5 (Five) Minutes As Needed for Chest Pain. 25 tablet 5 5 Active bisoprolol (ZEBeta) 5 MG tablet Take 1 tablet by mouth Daily. 30 tablet 11 5 Active simvastatin (ZOCOR) 40 MG tablet Take 1 tablet by mouth every night at bedtime. 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 Status post CT guided PCI of the proximal/mid LAD with placement of a 2.5 x 23 mm ESTEVAN. Lumbar stenosis with neurogenic claudication 07/2019 Sleep apnea Hypertension Mixed hyperlipidemia Resolved Problems Problem Noted Date Diagnosed Date Resolved Date CAD (coronary artery disease) 02/24/2024 Overview (09/06/2016): a. Remote left heart catheterization, nonobstructive. b. February 2012; MPS showing normal perfusion, EF preserved. Bradycardia 02/24/2024 Overview (09/06/2016): Asymptomatic bradycardia noted during colonoscopy sedation. Encounters Date Type Department Care Team Description 05/29/2025 Refill [facility] [address] [place] [address] [place] [address] Vel Stark MD Med Refill from Last 3 Months Family History Medical History Relation Name Comments Emphysema Father Cancer Mother Relation Name Status Comments Father Mother Social History Tobacco Use Types Packs/Day Years Used Date Smoking Tobacco: Former Cigarettes Q uit: 1975 Passive Smoke Exposure: Past Smokeless Tobacco: Former Quit: 05/08/2000 Tobacco Cessation:Counseling Given: Not Answered Alcohol Use Standard Drinks/Week Comments No 0 (1 standard drink = 0.6 oz pur e alcohol) AUDIT-C Answer Date Recorded Q1: How often do you have a drink containing alcohol? Never 02/25/2024 Q2: How many drinks containi ng alcohol do you have on a typical day when you are drinking? Patient does not drink Q3: How often do you have si x or more drinks on one occasion? Never 02/25/2024 Abuse Screen Answer Date Recorded Feels Unsafe at Home or Work/School no 02/25/2024 Feels Threatened by Someone no 01/28 Does Anyone Try to Keep You From Having Contact with Others or Doing Things Outside Your Home? no 02/25/2024 Physical Signs of Abuse Present no 02/25/2024 Housing Stability Answer Date Recorded Current Living Arrangements home 01/28 Potentially Unsafe Housing Conditions Not on rocky e 02/25/2024 Disabilities Answer Date Recorded Difficulty Concentrating, Remembering or Making Decisions no 02/25/2024 Difficulty Managing Errands Independently no 02/25/2024 Sex and Gender Information Value Date Recorded Sex Assigned at Not on file Legal Sex Male 11:50 AM EDT Gender Identity Not on file Sexual Orientation Not on file Last Filed Vital Signs Vital Sign Reading Time Taken Comments Blood Pressure 152/86 01/21/2025 9:25 AM EDT Pulse 88 01/21/2025 8:59 AM EDT Temperature 36.1 C (97 F) 02/25/2024 6:32 AM EDT Respiratory Rate 16 02/25/2024 9:20 AM EDT Oxygen Saturation 98% 01/21/2025 8:59 AM EDT Inhaled Oxygen Concentration - - Weight 112 kg (246 lb) 01/21/2025 8:59 AM EDT Height 175.3 cm (5' 9.02 ) 01/21/2025 8:59 AM ED T Body Mass Index 36.31 01/21/2025 8:59 AM EDT Plan of Treatment Upcoming Encounters Date Type Department Care Team (Late st Contact Info) Description 08/20/2025 9:30 AM EDT Office Visit [facility] [address] [place] [address] [place] [address] Vel Stark MD [address] [facility] [address] [place] [address] 12/21/2025 12:30 PM EST Appointment [facility] [address] [place] [address] 12/21/2025 2:00 PM EST Appointment [facility] [place] [address] [facility] [address] [place] [address] Health Maintenance Due Date Last Done Comments Pneumococcal Vaccine 50+ (1 of 2 - PCV) 1964 TDAP/TD VACCINES (1 - Tdap) 1962 COLOGUARD 1988 COLON CANCER SCREENING 5 YEA R SIGMOIDOSCOPY 1988 COLONOSCOPY [address] CANCER SCREENING 1988 CT COLONOGRAPHY 1988 FECAL OCCULT BLOOD TEST 1988 FIT Testing (1 year) 1988 ANNUAL WELLNESS VISIT 06/19/2017 RSV Vaccine - Adults (1 - 1- dose 75+ series) 2018 COVID-19 Vaccine (2023-2 5 season) 2025 08/11/2024, 09/06/2023, 09/27/2022, Additional history exists LIPID PANEL 02/24/2025 02/25/2024, 02/27, 07/14/2019 INFLUENZA VACCINE 07/29/2025 08/11/2024, , 08/13/2021, Additional history exists ZOSTER VACCINE Completed 10/06/2021, 06/30/2021 Medical Devices Implanted Type Area Process Engineering Technician Device Identifier Shelf Expiration Date Model / Serial / Lot Wax Bone Aesculap 2.5gm - [id number] Implanted:Qty : 1 on 10/10/2019 by Jaison Ch MD at [facility] Implant N/A: Spine Lumbar AESCULAP A B [employer] CO [id number] / / Stnt Cornry Rx Xience/Skypoi nt Rapdxng [id number] - [id number] Implanted:Qty : 1 on 02/25/2024 by Gerald Sanders IV, MD at [facility] N/A: Heart STAHL VASCULAR 09/03/2026 [id number] / / [id number] Procedures Procedure Name Priority Date/Time Associated Diagnosis Comments SCANNED - LABS 03/30/2025 LIPID PANEL STAT 02/25/2024 6:37 AM EDT from Last 3 Months or Most Recently Relevant to Health Maintenance Results * LABS SCANNED (03/30/2025) Vel Stark MD LAB BLOOD ORDERABLES Final Res ult * Lipid Panel (02/25/2024 6:37 AM EDT) Total Cholesterol 120 0 - 200 mg/dL 02/25/2024 7:22 AM EDT [facility] Triglycerides 70 0 - 150 mg/dL 02/25/2024 7:22 AM EDT [facility] HDL Cholesterol 43 40 - 60 mg/dL 02/25/2024 7:22 AM EDT [facility] LDL Cholesterol 62 0 - 100 mg/dL 02/25/2024 7:22 AM EDT [facility] VLDL Cholesterol 15 5 - 40 mg/dL 02/25/2024 7:22 AM EDT [facility] LDL/HDL Ratio 1.47 02/25/2024 7:22 AM EDT [facility] Blood Line / Unknown 02/25/2024 6: 37 AM EDT 02/25/2024 6:54 AM EDT Narrative [facility] - 02/25/2024 7:22 AM EDT Cholesterol Reference Ranges (U.S. Department of Health and Human Services ATP III Classifications) Desirable <200 mg/dL Borderline High 200-239 mg/dL High Risk >240 mg/dL Triglyceride Reference Ranges (U.S. Department of Health and Human Services ATP III Classifications) Normal <150 mg/dL Borderline High 150-199 mg/dL High 200-499 mg/dL Very High >500 mg/dL HDL Reference Ranges (U.S. Department of Health and Human Services ATP III Classifications) Low <40 mg/dl (major risk factor for CHD) High >60 mg/dl ('negative' risk factor for CHD) LDL Reference Ranges (U.S. Department of Health and Human Services ATP III Classifications) Optimal <100 mg/dL Near Optimal 100-129 mg/dL Borderline High 130-159 mg/dL High 160-189 mg/dL Very High >189 mg/dL us Awilda Crow SUPPLY AIDE LAB BLOOD ORDERABLES Caryn elio Result [facility]
[address] [place] [address], from Last 3 Months or Most Recently Relevant to Health Maintenance Insurance Advance Directives * CPR (Attempt to Resuscitate) (Latest Code Status on File) Date Activated Date Inactivated Comments 02/25/2024 9:24 AM 02/25/2024 3:28 PM Question Answer Comments Code Status (Patient has no pulse and is not breathing): CPR (Attempt to Resuscitate) Medical Interventions (Patie nt has pulse or is breathing): Full Support * CPR (Attempt to Resuscitate) Date Activated Date Inactivated Comments 10/10/2019 9:58 AM 10/12/2019 2:19 PM Question Answer Comments Code Status (Patient has no pulse and is not breathing): CPR (Attempt to Resuscitate) Medical Interventions (Patie nt has pulse or is breathing): Full * CPR (Attempt to Resuscitate) Date Activated Date Inactivated Comments 10/07/2019 11:16 AM 10/10/2019 9:58 AM Question Answer Comments Code Status (Patient has no pulse and is not breathing): CPR (Attempt to Resuscitate) Medical Interventions (Patie nt has pulse or is breathing): Full Care Teams Cement Finisher Relationship Specialty Start Date End Date Dean Gillis MD [address] [facility] [address] [facility] [address] [place] [address] PCP - General 11/23/15
--- OUTSIDE RECORDS SUMMARY | 2025-06-11 07:53 | XMS_ITS | Encounter Summary ---
Author Organization [facility] Address [address] [place] [id number] Care Team Providers Care Vine Pruner Name Role Phone Dean Gillis MD Primary Care Provider [phone] Reason for Visit * Reason Comments Med Refill Encounter Details Date Type Department Care Team (Late st Contact Info) Description 05/29/2025 Refill [facility] [address] [place] [address] [place] [address] Vel Stark MD [address] [facility] [address] [place] [address] Med Refill Social History Tobacco Use Types Packs/Day Years Used Date Smoking Tobacco: Former Cigarettes Q uit: 1975 Passive Smoke Exposure: Past Smokeless Tobacco: Former Quit: 05/08/2000 Alcohol Use Standard Drinks/Week Comments No 0 [...] on file Sexual Orientation Not on file documented as of this encounter Plan of Treatment Upcoming Encounters Date Type Department Care Team (Late st Contact Info) Description 08/20/2025 9:30 AM EDT Office Visit [facility] [address] [facility] [address] [place] [id number] Vel Stark MD [address] [facility] [address] [place] [address] 12/21/2025 12:30 PM EST Appointment [facility] [place] [address] [facility] [address] [place] [address] 12/21/2025 2:00 PM EST Appointment [facility] [place] [address] [facility] [address] [place] [address] documented as of this encounter Visit Diagnoses Not on filedocumented in this encounter Care Teams Vine Pruner Relationship Specialty Start Date End Date Dean Gillis MD [address] [facility] [address] [facility] [place] [address] PCP - General 11/23/15 documented as of this encounter
[2025-06-11 10:48] LABS: Hematocrit 36.6 % (42.0-52.0); Hemoglobin 11.3 g/dL (14.1-18.0); Immature Granulocytes % 0.6 %; Mean Corpuscular HGB Conc 30.9 g/dL (31.8-35.4); Mean Corpuscular Hemoglobin 20.7 pg (27.0-31.2); Mean Corpuscular Volume 67.0 fl (80-94); Nucleated Red Blood Cells % 0 %; Platelet Count 172 K/mm3 (142-424); Red Blood Count 5.46 M/mm3 (4.60-6.20); Red Cell Distribution Width-SD 38.3 fL; White Blood Count 7.8 K/mm3 (4.8-10.8)
== END 2025-06-11 23:59 | disposition home or self-care (01) ==
LOC: LAB 07:51
PROVIDERS: PCP Family Medicine; Visit Provider Internal Medicine Medical Oncology
DX: D64.9 Anemia, unspecified (principal)
CPT/HCPCS: 36415; 85025